=== PATIENT | female | born 1965 | race Caucasian/White ===

== ENCOUNTER 2024-09-24 21:16 | Emergency (ER) | payer MEDICAID, SELFPAY ==
[2024-09-24 21:21] VITALS: BP 134/81; PULSE 90; RESP 18; TEMP 37.1; O2SAT 97
--- NOTE | 2024-09-24 21:43 | XR_ITS ---
Examination: CT cervical spine without contrast 2-D sagittal reconstructions 2-D coronal reconstructions 3-D reconstructions. Exam date and time:September 24, 2024 1137 hours INDICATIONS: Patient fell today with image of the neck, neck pain CTDI:vol (mGy) 15.4 DLP: (mGycm) 310 Technique: Multiple 2 mm axial sections of the cervical spine have been obtained. The coronal and sagittal reconstructions have been obtained. 3-D reconstructions have been obtained. Low dose protocols were performed. One or more of the following dose reduction techniques were used; automated exposure control, adjustment of the mA and/or KV according to patient size, use of iterative reconstruction technique. Findings: Axial sections demonstrate intact base of the skull. C1 exhibit satisfactory relationship to the odontoid. No acute cervical vertebral body fracture seen. Alignment posterior spinous processes satisfactory. Impression: No acute cervical fracture.
--- NOTE | 2024-09-24 21:43 | XR_ITS ---
Examination: CT brain head without contrast. 2-D sagittal coronal reconstructions Date and time of exam:September 24, 2024 and 37 hours INDICATIONS: Patient fell today with injury to the right side of the head, head pain CTDI: vol (mGy):48.8 DLP: (mGycm):956 Technique: Multiple CT axial sections of the brain have been obtained, 5 mm slice thickness. Contrast has not been administered. 2-D sagittal, coronal reconstructions have been obtained Low dose protocols were performed. One or more of the following dose reduction techniques were used; automated exposure control, adjustment of the mA and/or KV according to patient size, use of iterative reconstruction technique. Findings: No significant ventricular enlargement. Right frontal scalp swelling Intra-axial or extra-axial hemorrhage density is not seen. No mass effect or midline shift Basal cisterns are not remarkable. Fourth ventricle is midline. Cranial vault intact. Impression: Negative for acute hemorrhage, mass effect or midline shift
--- NOTE | 2024-09-24 21:43 | XR_ITS ---
Examination: CT maxillofacial, without intravenous contrast. 2-D sagittal reconstructions. 3-D reconstructions. Date and time of exam:September 24, 2024 1137 hours INDICATIONS: Patient fell today with injury to the face, facial pain CTDI: vol (mGy):32.5 DLP: (mGycm):556 Technique: Multiple axial images of maxillofacial region, 3.0 mm slice thickness. 2-D sagittal and coronal reconstructions. 3-D reconstructions. Low dose protocols were performed. One or more of the following dose reduction techniques were used; automated exposure control, adjustment of the mA and/or KV according to patient size, use of iterative reconstruction technique. Findings: Frontal bone frontal sinuses intact No nasal bone fracture Orbital rims are intact Impression zygomatic arches Pterygoid plates maxilla and the mandible intact IMPRESSION: No acute facial fracture.
--- NOTE | 2024-09-24 21:43 | PD.EDFALL ---
ED Fall Injury RME/HPI General Chief Complaint: Fall Stated Complaint: FALL Time Seen by Provider: 09/24/24 22:40 Arrival date/time: 09/24/24 21:16 RME / HPI RME / HPI Narrative: This section includes all my notes and documentations, including HPI, PE, and ED course. Tam Melton MD HPI: 59yo female with a history of CVA, HTN BIBA from [facility] presents to the ED for a fall just prior to arrival. Patient states she was being transferred using the janeen when she fell out of the sling and hit her head. She fell forward and hit right side of her forehead/scalp. No headache or dizziness. She denies any loss of consciousness. Patient denies any neck pain, chest pain, abdominal pain, extremity pain or any other associated symptoms. Patient is not on blood thinners. Patient was given Tylenol 650mg at the [facility]. No other complaints reported. ROS: All negative except as documented in HPI. General:? Alert and oriented.? No acute distress.?? HEENT: PERRL. EOMI. In the superior aspect of the right forehead area, there is a quarter sized area of ecchymosis. Neck:? Supple.? No tenderness. Heart:? RRR.? Lungs:? No respiratory distress.? Good air movement.? No rhonchi, wheezing, rales.?? Chest:? No tenderness. Abdomen:? Soft and nontender.? Normal bowel sounds.? No distension.? No rebound or guarding.?? Back:? No tenderness.?? Legs:? No clubbing, cyanosis, edema.? Skin:? Warm and dry.?? Neuro:? Alert and oriented X 3.? Cranial Nerves II-XII grossly intact.? No peripheral motor deficits. Musculoskeletal:? All major joints and bones are not tender with no limited ROM.? I reviewed all diagnostic test results. My review of the CT head, cervical spine, and facial bones report are unremarkable. At this point, diagnoses include facial contusion and scalp contusion. Recommended supportive care. Based on my best medical judgment, made decision no further evaluation or treatment indicated at this time. Patient understands and agrees to the discharge instructions customized and printed, see below. Discharge Instructions from Dr. Melton printed for you: 1. Fortunately, there is no very serious injury. Such as brain injury or broken neck or broken bone. 2. Follow instructions in the attached handouts about facial contusion and scalp contusion. 3. Seek immediate medical care with severe and persistent headache, persistent vomiting, being extremely drowsy when you should be completely alert and awake, or with any concerns. Tam Melton MD Related Data Home Medications ?Medication ?Instructions ?Recorded ?Confirmed ascorbic acid (vitamin C) 500 mg 500 mg PO QDAY 10/07/21 10/07/21 tablet (Vitamin C) pollens extract tab PO 10/07/21 10/07/21 Previous Rx's ?Medication ?Instructions ?Recorded balsam gato-castor oil topical 1 g top BID ##0 08/11/21 ointment (Venelex topical ointment) Allergies Allergy/AdvReac Type Severity Reaction Status Date / Time Penicillins Allergy Intermediate Hives Verified 09/24/24 22:29 Review of Systems Review of Systems Systems Reviewed: All systems reviewed, normal except as documented Past Medical History Past Medical History NEUROLOGIC: Positive Neurological Disorders and Cerebrovascular Accident; Negative Seizures CARDIAC: Positive Cardiac Disorders and Hypertension; Negative Congestive Heart Failure RESPIRATORY: Negative Chronic Obstructive Pulmonary Disease (COPD) or Asthma GENITOURINARY: Negative Renal Disease ENDOCRINE: Negative Diabetes Mellitus Type 1 or Diabetes Mellitus Type 2 HEMATOLOGIC: Negative Sickle Cell Disease PSYCHO/SOCIAL: Positive Recreational Drug Use OTHER HISTORY: Negative Blood Transfusions, Blood Transfusion Reaction or Anesthesia Reactions Surgical History SURGICAL: Positive Gastrostomy Social History SMOKING STATUS: Unknown if ever smoked SUBSTANCE USE: does not use ED Exam Narrative Physical exam: As noted in HPI. Course Quality Measures none Orders Category Date Time Status CT cervical spine wo con Stat Exams 09/24/24 21:[address] facial bones wo con Stat Exams 09/24/24 21:[address] head/brain wo con Stat Exams 09/24/24 21:43 Completed Vital Signs Vital signs: Vital Signs Temperature 98.8 F 09/24/24 21:21 Pulse Rate 90 09/24/24 21:21 Respiratory Rate 18 09/24/24 21:21 Blood Pressure 134/81 H 09/24/24 21:21 Pulse Oximetry (%) 97 09/24/24 21:21 Oxygen Delivery Method Room Air 09/24/24 21:21 Fall MDM Narrative MDM Narrative:: Scribe Attestation: 09/24/24 - I, Kimberly Elias, am scribing for and in the presence of Dr. Melton. 59yo female with a history of CVA, HTN BIBA from [facility] presents to the ED for a fall. Patient states she was being transferred using the janeen left when she fell out of the sling and hit her head. She denies any loss of consciousness. Patient denies any neck pain, chest pain, abdominal pain, extremity pain or any other associated symptoms. Patient is not on blood thinners. Patient was given Tylenol 650mg at the [facility]. No other complaints reported. Patient data External records reviewed:: [facility] previous records (Per chart review, patient was seen here on 07/07/23 for dislodged gastrostomy tube.) Clinical information provided by:: patient and EMS Social determinants that could affect healthcare access:: housing (SNF resident) Patient has the following chronic illnesses:: CVA, HTN How is presenting disease/condition affected by chronic disease/condition?: uneffected by Evaluation data The following diagnostics were reviewed and interpreted by me:: radiology exam(s) Lab and/or radiology exams considered but not ordered:: none Interpretation Summary: I reviewed all diagnostic test results. My review of the CT head, cervical spine, and facial bones report are unremarkable. Medications / Prescriptions Medications or Prescriptions considered but not ordered:: none Medication administrations:: none Consultations Consultation(s) initiated? (list below): No Diagnosis Fall Differential Diagnosis: syncope, compression fracture, concussion with loss of consciousness, concussion without loss of consciousness and other (Intracranial hemorrhage, skull fracture, cervical fracture) Most likely diagnosis given after review of the tests above:: facial contusion, scalp contusion Admission Indicated Admission indicated?: not indicated Explain why admission is indicated or not indicated:: With no serious injury, there was no indication for admission. Admission Request Was there a request for admission?: No Disposition Plan Disposition Plan: Discharge Discharge Attestation Discharge Attestation: The patient and all family members were given an opportunity to ask questions and understood the discharge instructions. Discharge instructions specifically effects, indications for sooner follow up or return to the emergency department, and the expected course of current diagnosis. Patient condition: Stable Discharge Plan Plan Patient Disposition: Xfer Skilled Nsg Fac (SNF) Prescriptions/Referrals Prescriptions/Med Rec: No Action pollens extract Tablet PO ascorbic acid (vitamin C) [Vitamin C] 500 mg Tablet 500 mg PO QDAY balsam gato-castor oil [Venelex] Ointment 1 g top BID Qty: 0 0RF Referrals: Phi Ace MD [Primary Care Provider] - In 1 week Problem List Clinical Impression: Facial contusion, Scalp contusion Patient/Caregiver Discharge Instructions Discharge Activity: activity as tolerated Education Materials: ED Scalp Contusion, ED Facial Contusion Additional Instructions: Discharge Instructions from Dr. Melton printed for you: 1. Fortunately, there is no very serious injury. Such as brain injury or broken neck or broken bone. 2. Follow instructions in the attached handouts about facial contusion and scalp contusion. 3. Seek immediate medical care with severe and persistent headache, persistent vomiting, being extremely drowsy when you should be completely alert and awake, or with any concerns. Print Language: Estonian Stand Alone Forms: [employer] Award Info., Patient Portal Info Letter
[2024-09-24 22:30] VITALS: PULSE 97; RESP 17; O2SAT 95
[2024-09-24 23:40] VITALS: BP 164/80; PULSE 110; RESP 16; TEMP 36.9; O2SAT 98
== END 2024-09-25 01:39 | disposition skilled nursing facility (03) ==
PROVIDERS: Emergency Provider Emergency Medicine; PCP Hospitalist
DX: S00.03XA Contusion of scalp, initial encounter (principal); W19.XXXA Unspecified fall, initial encounter; I10 Essential (primary) hypertension; Z86.73 Personal history of transient ischemic attack (TIA), and cerebral infarction without residual deficits
CPT/HCPCS: 70450; 70486; 72125; 99284

== ENCOUNTER → 2025-04-24 | Outpatient (CLI) | payer MEDICAID, SELFPAY | END | disposition home or self-care (01) | LOC: SWHD 09:12 | PROVIDERS: PCP Hospitalist; Referring Provider Hospitalist; Visit Provider Surgery | DX: S91.302A Unspecified open wound, left foot, initial encounter (principal); S91.301A Unspecified open wound, right foot, initial encounter; X58.XXXA Exposure to other specified factors, initial encounter; I10 Essential (primary) hypertension; I87.2 Venous insufficiency (chronic) (peripheral) | CPT/HCPCS: 99214; G0463 ==